=== PATIENT | male | born 1950 | race Caucasian/White ===

== ENCOUNTER 2025-05-22 10:17 | Emergency (ER) | payer MEDICARE ==
[~2025-05-22] VITALS: Ht 170.2 cm; Wt 102.1 kg
[~2025-05-22 10:17] MED LIST: AMIODARONE HCL200 MG PO; ATORVASTATIN CA40 MG PO; DIGOXIN125 MCG PO; FERROUS SULFATE PO; INSULIN SQ; LISINOPRIL10 MG PO; METFORMIN HCL500 MG PO; NOVOLIN N100 UNIT/1 SC; PLAVIX75 MG PO; PRAVASTATIN SOD40 MG PO; TOPROL XL50 MG PO
[2025-05-22 10:30] VITALS: TEMP 98.4
[2025-05-22] MEDS ORDERED: SODIUM CHLORIDE FLUSH 10 ML SYR IV PRN (10:45)
[2025-05-22 11:22] LABS: BASOPHILS % 0.5 % (0.0-1.0); EOSINOPHILS % 0.9 % (0.0-6.0); LYMPHOCYTES % 12.9 % (18.0-39.1); MONOCYTES % 11.5 % (4.4-11.3); NEUTROPHILS % 73.7 % (38.7-80.0); RED CELL DISTRIBUTION WIDTH 14.4 % (11.7-14.4)
[2025-05-22 11:34] VITALS: BP 183/105
[2025-05-22] MEDS: HYDRALAZINE HCL 20 MG/ML VIAL IV STA (11:34)
[2025-05-22 11:37] LABS: EST GLOMERULAR FILTRATION RATE 62.0 ML/MIN (>=60)
[2025-05-22 11:45] VITALS: PULSE 83; RESP 20; O2SAT 95
[2025-05-22] MEDS ORDERED: LASIX40 MG PO (13:26)
== END 2025-05-22 13:37 | disposition home or self-care (01) ==
LOC: ER 10:38
DX: L97.819 Non-pressure chronic ulcer of other part of right lower leg with unspecified severity (principal); R60.9 Edema, unspecified; I10 Essential (primary) hypertension; E11.65 Type 2 diabetes mellitus with hyperglycemia; I48.91 Unspecified atrial fibrillation; Z85.038 Personal history of other malignant neoplasm of large intestine
CPT/HCPCS: 36415; 71046; 80053; 83880; 84484; 85025; 93005; 93971; 94760; 99284; J0360